=== PATIENT | male | born 1965 | race Caucasian/White ===

== ENCOUNTER → 2021-09-21 09:56 | Outpatient (CLI) | payer BC, SELFPAY ==
--- NOTE | 2021-09-21 10:07 | XR_ITS ---
FINAL REPORT CLINICAL HISTORY: LT SHOULDER PAIN FINDINGS: LEFT SHOULDER 3 views demonstrate no acute fracture or dislocation. There is mild AC joint degenerative change. The visualized bony structures are well aligned. No soft tissue abnormality is seen. IMPRESSION: No acute process. Reviewed, Interpreted and Dictated by Zach Ceja III, MD Transcribed by Rubin Sanchez Authenticated and [facility]
== END ==
PROVIDERS: PCP Family Medicine; Visit Provider Nurse Practitioner Family
DX: M25.512 Pain in left shoulder (principal)
CPT/HCPCS: 73030

== ENCOUNTER → 2021-10-08 14:12 | Outpatient (CLI) | payer BC, SELFPAY ==
--- NOTE | 2021-10-08 14:34 | MR_ITS ---
FINAL REPORT CLINICAL HISTORY: LEFT SHOULDER PAIN. LIMITED ROM. WEAKNESS IN ARM. FELT POP IN ARM 2 WEEKS AGO. BEEN TO PT. 19ML PROHANCE GIVEN. FINDINGS: Multiplanar MR imaging of the left shoulder was performed without and with contrast. There is a full-thickness tear of the anterior footprint of the supraspinatus tendon measuring 12 mm in AP dimension. There is a partial-thickness articular surface tear of the subscapularis tendon. There is moderate AC joint arthrosis. A moderate amount of fluid seen in subacromial/subdeltoid bursa. The glenoid labrum is intact. There is medial subluxation of the proximal long head of the biceps tendon with a partial tear. There is a subchondral cyst in the superior humeral head. There is contrast enhancement in the bursa and bicipital groove consistent with inflammation. Moderate glenohumeral joint effusion is seen. There is no evidence of fracture or dislocation. The musculature is intact. There is no evidence of soft tissue mass. IMPRESSION: This tear of the supraspinatus tendon. Partial-thickness articular surface tear of the subscapularis tendon. Partial tear of the long head of the biceps tendon. Reviewed, Interpreted and Dictated by Zach Ceja III, MD Transcribed by Terra Hawkins Authenticated and [facility]
== END ==
PROVIDERS: PCP Family Medicine; Visit Provider Nurse Practitioner Family
DX: M25.512 Pain in left shoulder (principal)
CPT/HCPCS: 73223; A9576

== ENCOUNTER 2021-10-21 10:00 | Outpatient (RCR) | payer BC, SELFPAY | END 2021-10-21 10:05 | disposition home or self-care (01) | LOC: PT 10:00 | PROVIDERS: PCP Family Medicine; Visit Provider Nurse Practitioner Family | DX: M25.512 Pain in left shoulder (principal) | CPT/HCPCS: 97110; 97163 ==

== ENCOUNTER → 2021-11-19 10:00 | Outpatient (CLI) | payer BC, SELFPAY ==
--- NOTE | 2021-11-19 10:22 | XR_ITS ---
FINAL REPORT CLINICAL HISTORY: pre op. pt has HTN FINDINGS: 2 views of the chest were obtained . The heart is normal in size. The mediastinum is within normal limits. The lungs are clear. There is no pneumothorax. Osseous structures demonstrate moderate degenerative changes of the thoracic spine. IMPRESSION: No acute cardiopulmonary process. Reviewed, Interpreted and Dictated by Zach Ceja III, MD Transcribed by Wendi Walker Authenticated and [facility]
--- NOTE | 2021-11-19 10:52 | ECG_ITS ---
APPROVED REPORT Exam: Resting ECG HR:66 bpm ECG Measurements Heart Rate 66 AXES MN 152 P 23 QRSd 146 QRS -76 QT 373 T 0 QTc 387 Conclusion SINUS RHYTHM RIGHT BUNDLE BRANCH BLOCK [120+ ms QRS DURATION, UPRIGHT V1, 40+ ms S IN I/aVL/V4/V5/V6] VOLTAGE CRITERIA FOR LVH [MEETS CRITERIA IN ONE OF: R(aVL), S(V1), R(V5), R(V5/V6)+S(V1)] INFERIOR MYOCARDIAL INFARCTION , OF INDETERMINATE AGE [40+ ms Q WAVE AND/OR ST/T ABNORMALITY IN II/aVF] ABNORMAL ECG UNCONFIRMED REPORT Electronically signed by : Last Carl MD 11/20/2021 21:41:37
[2021-11-19 11:50] LABS: Basophils # 0.1 K/mm3 (0-0.2); Basophils % 1.1 % (0.1-2.0); Eosinophils # 0.1 K/mm3 (0.0-0.4); Eosinophils % 1.8 % (0.1-12.0); Hematocrit 52.2 % (42.0-52.0); Hemoglobin 16.7 g/dL (14.1-18.0); Lymphocytes % 26.8 % (10-50); Mean Corpuscular Hemoglobin 29.8 pg (27.0-31.2); Mean Corpuscular Volume 93.1 fl (80-94); Monocytes # 0.5 K/mm3 (0.1-1.0); Monocytes % 6.2 % (1.7-9.3); Neutrophils # 4.8 K/mm3 (1.8-7.8); Platelet Count 176 K/mm3 (142-424); Red Cell Distribution Width 15.5 % (11.5-17.5); White Blood Count 7.6 K/mm3 (4.8-10.8)
[2021-11-19 12:38] LABS: Alanine Aminotransferase 15 U/L (12-78); Albumin Level 4.2 g/dl (3.5-5.0); Albumin/Globulin Ratio 1.8 (1.1-1.8); Alkaline Phosphatase 44 U/L (38-126); Anion Gap 11.8 mEq/L (5-15); Aspartate Amino Transferase 30 U/L (17-59); Bilirubin,Total 1.6 mg/dl (0.2-1.3); Blood Urea Nitrogen 13 mg/dl (9-20); Calcium 9.5 mg/dl (8.4-10.2); Carbon Dioxide 30 mmol/L (22.0-30.0); Chloride 100 mmol/L (98-107); Estimated Glomerular Filt Rate 63 ml/min (>60); GFR (African American) 77 ML/MIN (>60); Globulin 2.4 g/dL (1.3-3.2); Glucose 89 mg/dl (74-100); Potassium 4.8 mmoL/L (3.5-5.1); Sodium 137 mmol/L (136-145); Total Protein,Serum 6.6 g/dl (6.3-8.2)
== END ==
PROVIDERS: PCP Family Medicine; Visit Provider Orthopaedic Surgery
DX: Z01.818 Encounter for other preprocedural examination (principal); M25.512 Pain in left shoulder; G89.29 Other chronic pain
CPT/HCPCS: 36415; 71046; 80053; 85025; 93005

== ENCOUNTER → 2021-11-24 08:52 | Outpatient (CLI) | payer BC, SELFPAY | PROVIDERS: PCP Family Medicine; Visit Provider Orthopaedic Surgery | DX: M25.512 Pain in left shoulder (principal); G89.29 Other chronic pain; Z01.812 Encounter for preprocedural laboratory examination; Z20.822 Contact with and (suspected) exposure to COVID-19 | CPT/HCPCS: C9803; U0003; U0005 ==

== ENCOUNTER → 2021-11-25 14:31 | Outpatient (CLI) | payer BC, SELFPAY ==
--- NOTE | 2021-11-25 14:33 | CA_ITS ---
APPROVED REPORT EXAM: Comprehensive 2D, Doppler, and color-flow Echocardiogram Offset Press Operator Apprentice: Negrita Bliss, RT(R) Ht: 5 ft 7 in Wt: 214lbs BSA: 2.08 BP: 160/89 mmHg Indications: pre op for shoulder surgery tomorrow, HTN, abn EKG 2D Dimensions IVSd 1.52 cm M: 0.6-1.2 LVEF (Visual) 52.30 % PWd 1.07 cm M: 0.6 - 1.2 LA Volume 37.30 mL LVDd 3.21 cm M: 4.2 - 5.9 LA Volume Index 17.93 mL/m2 (M/F) 16-34 LVDs 2.38 cm M: 2.5 - 4.0 LVOT 2.07 cm (M/F) 1.5-2.5 M-Mode Dimensions LA Diam 4.00 cm (1.9-4.0) Ao Diam 3.11 cm (2.0-3.7) LV Diastology E Decel Time 190.00 (160-240 msec) E/A Ratio 0.7 MED E' 5.60 (< 7 cm/sec) E'/MED E' Ratio 11.71 (>14) LAT E' 9.60 (<10 cm/sec) E/LAT E' Ratio 6.83 (>14) Mitral Valve MV E Max Douglas. 66.00 (40-130 cm/s) MV A Velocity 101.00 (40-130 cm/s) E/A Ratio 0.65 MV Decel. Time 190.00 (160-240 ms) MV PHT 56.00 ms Left Ventricle Left atrium is mildly enlarged, left ventricle is normal size mild concentric left ventricular hypertrophy, estimated ejection fraction 55% with no regional wall motion abnormality, grade 1 diastolic dysfunction seen without tissue Doppler evidence of raise left atrial pressure. Right Ventricle Right atrium and right ventricle are normal size and contractility. Aortic Valve Aortic valve is minimally thickened and fibrosed there is no aortic stenosis or aortic insufficiency. Mitral Valve Mitral valve grossly normal, there is trace mitral regurgitation. Tricuspid Valve Tricuspid valve grossly normal, there is trace tricuspid regurgitation, tricuspid regurgitation jet velocity is inadequate for calculation of the right ventricular systolic pressure. Pulmonic Valve Pulmonic valve is poorly visualized. Great Vessels Aortic root is normal size. Inferior vena cava is poorly visualized. Pericardium No significant pericardial effusion noted. Conclusion 1. Mildly enlarged left atrium, normal left ventricular size, mild concentric left ventricular hypertrophy, estimated ejection fraction 55% with no regional wall motion abnormality, grade 1 diastolic dysfunction seen without tissue Doppler evidence of raise left atrial pressure. 2. Trace mitral and tricuspid regurgitation. 3. No significant pericardial effusion noted. 4. Inferior vena cava is poorly visualized. Electronically signed by : Porfirio Bautista MD 11/26/2021 06:13:55
== END ==
LOC: RT 14:33
PROVIDERS: PCP Family Medicine; Visit Provider Physician Assistant
DX: Z01.810 Encounter for preprocedural cardiovascular examination (principal); I10 Essential (primary) hypertension; R94.31 Abnormal electrocardiogram [ECG] [EKG]
CPT/HCPCS: 93306

== ENCOUNTER 2021-11-26 06:00 | Day surgery (SDC) | payer BC, SELFPAY ==
[2021-11-23 14:26] VITALS: BMI 33.5
[2021-11-26] VITALS (13 sets, daily range): BP systolic 145–171; BP diastolic 72–84; PULSE 66–84; RESP 12–18; TEMP 36.3–43; O2SAT 92–97
--- NOTE | 2021-11-26 10:28 | P.PN_ITS ---
[facility] Anesthesia Checklist - Structural Data Admitted From: Home Planned Operative Procedure/s: l shoulder arthroscopy Consent for Planned Operative Procedure(s) Verified: Yes - Additional verifications Anesthesia Reactions: No Hx Blood Transfusions: No Blood Transfusion Reaction: No - Airway Assessment C-Spine Mobility Assessed: Yes TMJ Mobility Assessed: Yes Dentition: Good Dentition - Neurological Assessment Level of Consciousness: Awake, Alert, Appropriate - Anesthesia Plan Anesthesia Risk discussed: Yes Anesthesia Plan: Verified ASA Class: II Anesthesia Type: General w/block - Preoperative Comments Pre-Operative Comments: BP block exp to pt, pt agrees to proceed [facility] History I have reviewed the patient's past medical history: Yes Medical History: Reports:: Hypertension Denies:: Cancer, Diabetes Mellitus Type 1, Diabetes Mellitus Type 2, Internal Pacemaker, MRSA, Seizures *Have you ever received a pneumonia vaccine?: No *Have you received a flu vaccine this season?: No Other Medical History: Denies: Blood Transfusion Reaction Anesthesia experience/problems:: none Other Surgeries: Yes: Colonoscopy. No: Pacemaker Amputation: No - *Social History Last grade of school completed: Advanced degree Smoking Status: Never smoker Alcohol Intake: never Substance Use Type: denies use *Occupational Status:: employed *Travel in the last 8 weeks: None Family Hx:: No significant family history
--- NOTE | 2021-11-26 11:20 | SUR.OPER ---
1120 family given an update via Blaine Infante RN
--- NOTE | 2021-11-26 12:31 | SUR.OPER ---
1230 family given an update via Arthur Aguilar RN
--- NOTE | 2021-11-26 13:43 | SUR.OPER ---
1330 family given an update via Arthur Aguilar RN
--- NOTE | 2021-11-26 14:31 | P.PN_ITS ---
[facility] Anesthesia Record Part I Intake, IV Amount: 3,200 Estimated blood loss (mL): 0 Urine output (mL): 2,000 Blood Pressure: 145/76 SaO2: 94 Pulse Rate: 79 Respiratory Rate: 12 Temperature: 97.6 F Patient is:: Awake, Stable Stable to PACU at:: 14:25
[2021-11-26 14:57] LABS: Microscopic,Cath URINE MICROSCOPIC (MICROSCOPIC)
--- NOTE | 2021-11-26 15:01 | SUR.PHASEI ---
1454 called and gave detailed report to Romeo Berry RN 1455 transported via stretcher to post op. vital signs stable. denies pain. left in stable condition with Romeo Berry RN at bedside.
[2021-11-26 15:24] LABS: Appearance,Urine/Cath CLEAR (Clear); Bilirubin,Cath Negative (Negative); Blood, Urine/Cath TRACE-I (Negative); Color,Urine/Cath YELLOW (Yellow); Glucose,Urine/Cath (UA) Negative (Negative); Ketones,Urine/Cath Negative (Negative); Leukocyte Esterase,Cath Negative (Negative); Nitrate,Cath Negative (Negative); Protein,Urine/Cath Negative (Negative); Specific Gravity, Urine/Cath 1.025 (1.005-1.030); Urobilinogen,Cath 0.2 EU/dl (0.2)
[2021-11-26 16:06] LABS: RBC,Urine/Cath Occasional # /hpf (0-3)
--- NOTE | 2021-11-26 16:37 | P.PN_ITS ---
[facility] Anesthesia Record Part II Discharge Time: 14:55 Destination: Surgical Day Care (OP Surgery) PACU nurse assessment reviewed?: Yes Patient Condition:: Good Anesthesia Complications:: None Swallowing reflex intact?: Yes Cyanosis?: No Blood Pressure: 155/80 Pulse Rate: 79 Temperature: 97.4 F Mental Status: Alert & Oriented Pain level:: 0 Nausea and/or vomitting:: None Intake, IV Amount: 0
--- NOTE | 2021-11-26 16:50 | P.OP_ITS ---
Date of procedure: 11/26/21 Pre-op Diagnosis:: 1. Complete full-thickness Rotator cuff tear, LEFT shoulder 2. Biceps tendinopathy, LEFT shoulder 3. Subacromial bursitis, LEFT shoulder 4. Subacromial impingement, LEFT shoulder Post-op Diagnosis:: 1. Rotator cuff tear, LEFT shoulder- Full thickness complete tear of the supraspinatus tendon tear and upper border subscapularis tendon tear. 2. Biceps tendinopathy, LEFT shoulder 3. Subacromial bursitis, LEFT shoulder 4. Subacromial impingement, LEFT shoulder 5. Degenerative labrum and synovitis, LEFT glenohumeral joint Procedure performed:: 1. LEFT shoulder arthroscopic rotator cuff repair of a large rotator cuff tear. 2. LEFT shoulder arthroscopic subacromial decompression with subacromial and subdeltoid bursectomy and a bony acromioplasty. 3. LEFT shoulder arthroscopic glenohumeral joint debridement, extensive. 4. LEFT shoulder arthroscopic biceps tenodesis Surgeon:: Allan Simon MD Marketing Research Coordinator(s):: Martha Taylor PA-C [employer]ODUCTS GATHERER:: Will Thomas Anesthesia: GETA, regional (Interscalene nerve block) Estimated blood loss (mL): 5 Clinical Note:: Mr. Flores is a pleasant 56-year-old [id number] gentleman with history of pain and disability in his LEFT shoulder after an injury. He had weakness and difficulty with the use of the arm. Preoperative evaluation was consistent with the above mentioned diagnosis. After discussion of the risks and benefits of the surgical versus nonsurgical management, he elected to proceed with surgical remediation. Please refer to my office note for full details. Operative findings:: There was a full-thickness crescent-shaped complete tear of the supraspinatus tendon and a partial-thickness upper border tear of the subscapularis tendon. The biceps tendon showed synovitis and partial tearing in the biceps groove. At the time of arthroscopic tenodesis marked synovitis and partial thickness tear was noted in the extra-articular part of the biceps tendon. The labrum was frayed all around but not detached. The rotator interval was synovitic. The articular surface of the humerus and the glenoid had some softening, but no evidence of any full-thickness cartilage loss. There was extensive subacromial and subdeltoid bursitis and the acromion had undersurface spurring over the anterolateral margin. Operative note:: Implants: 1. Arthrex SpeedBridge implant system with BioComposite SwiveLock SP anchors ?4 (for SpeedBridge repair of the supraspinatus tendon). 2. Arthrex BioComposite SwiveLock suture anchor (8?19.5 mm) x 1 (for biceps tenodesis). 3. Arthrex BioComposite SwiveLock suture anchor (4.75 x 19.1 mm) x1 (for SpeedFix repair of the subscapularis tendon). Condition: stable Disposition: PACU Specimens:: None Complications:: None
== END 2021-11-26 15:48 | disposition home or self-care (01) ==
LOC: OR 06:02
PROVIDERS: PCP Family Medicine; Visit Provider Orthopaedic Surgery
PROC: (CPT 29827; principal; 2021-11-26 09:00)
DX: M75.122 Complete rotator cuff tear or rupture of left shoulder, not specified as traumatic (principal); M25.512 Pain in left shoulder; M75.52 Bursitis of left shoulder; M75.42 Impingement syndrome of left shoulder; M67.912 Unspecified disorder of synovium and tendon, left shoulder; M75.22 Bicipital tendinitis, left shoulder
CPT/HCPCS: 29827; 29828; 29826; 81001; 96374; C1713; J2405

== ENCOUNTER → 2022-02-17 09:39 | Outpatient (CLI) | payer BC, SELFPAY ==
--- NOTE | 2022-02-17 09:47 | XR_ITS ---
FINAL REPORT CLINICAL HISTORY: shoulder pain COMPARISON: 09/21/2021 FINDINGS: LEFT SHOULDER 3 views of the left shoulder were obtained. Tendon anchors are present in the humeral head. There is no acute fracture or dislocation. There is mild degenerative change of the acromioclavicular joint.. There is no soft tissue abnormality. IMPRESSION: Mild degenerative change of the acromioclavicular joint. Reviewed, Interpreted and Dictated by Chandrakant Beckham MD Transcribed by Danita Bourgeois Authenticated and [facility]
== END ==
PROVIDERS: PCP Family Medicine; Visit Provider Physician Assistant Surgical
DX: M25.512 Pain in left shoulder (principal); Z09 Encounter for follow-up examination after completed treatment for conditions other than malignant neoplasm
CPT/HCPCS: 73030

== ENCOUNTER → 2022-03-15 09:57 | Outpatient (CLI) | payer BC, SELFPAY ==
--- NOTE | 2022-03-15 09:58 | IR_ITS ---
FINAL REPORT CLINICAL HISTORY: lt shoulder pain, previous rotator cuff repair october 2021 31 second fluoro time FINDINGS: LEFT SHOULDER ARTHROGRAM. HISTORY: Acute left shoulder pain, prior rotator cuff injury and repair. ATTENDING PHYSICIAN: Dr. Ceja. PHYSICIAN HEATING UNIT INSTALLER: Danielle Garcia PA-C PROCEDURE: Informed consent was obtained from the patient. Timeout procedure was performed prior to beginning. Patient was placed supine on the fluoroscopy table. The left shoulder joint space was localized using fluoroscopy. Skin was marked appropriately. The patient was prepped and draped in the usual sterile fashion over the left shoulder. Skin was anesthetized with 1% Lidocaine. Access to the joint space was obtained using a 3-1/2 spinal needle. A small amount of Isovue contrast was injected to confirm needle placement. This was confirmed. Subsequently, approximately 18 mL of dilute gadolinium were injected into the joint space. The patient tolerated the procedure well and left the department in good condition. 17 images were saved. FLUOROSCOPY TIME: 31 seconds IMPRESSION: Technically successful injection of contrast for left shoulder arthrogram. Please see MR report. Reviewed, Interpreted and Dictated by Zach Ceja III, MD Transcribed by Danielle Garcia PA-C Authenticated and [facility]
--- NOTE | 2022-03-15 10:46 | MR_ITS ---
FINAL REPORT CLINICAL HISTORY: lt shoulder pain. HISTORY SHOULDER SURGERY 6MONTHS AGO. LIMITED ROM. FINDINGS: Multiplanar MR imaging of the left shoulder was performed after the intra-articular injection of dilute gadolinium solution. Motion on many of the images decreases exam sensitivity. There is postoperative change from rotator cuff tendon repair. No full-thickness rotator cuff tendon tear is seen. There is no evidence of contrast leakage from the glenohumeral joint to the subacromial/subdeltoid bursa. The a.c. joint is intact. The glenoid labrum is intact. There has been presumed biceps tenodesis. There is no evidence of fracture. The musculature is intact. No soft tissue mass or cyst is identified. IMPRESSION: Postoperative change from rotator cuff repair and presumed biceps tenodesis. No full-thickness rotator cuff tendon tear. Reviewed, Interpreted and Dictated by Zach Ceja III, MD Transcribed by Rubin Sanchez Authenticated and [facility]
== END ==
PROVIDERS: PCP Family Medicine; Visit Provider Physician Assistant Surgical
DX: Z98.890 Other specified postprocedural states; S46.012D Strain of muscle(s) and tendon(s) of the rotator cuff of left shoulder, subsequent encounter
CPT/HCPCS: 73040; 73222; Q9967

== ENCOUNTER → 2022-06-23 13:58 | Outpatient (CLI) | payer BC, SELFPAY ==
[2022-06-23 15:20] LABS: Alanine Aminotransferase 18 U/L (12-78); Albumin Level 4.8 g/dl (3.5-5.0); Alkaline Phosphatase 45 U/L (38-126); Anion Gap 14.6 mEq/L (5-15); Aspartate Amino Transferase 33 U/L (17-59); Bilirubin,Direct 0.1 mg/dl (0.0-0.4); Bilirubin,Indirect 1.2 mg/dL (0.0-0.9); Bilirubin,Total 1.3 mg/dl (0.2-1.3); Bilirubin,Unconjugated 1.2 mg/dL (0.0-1.1); Blood Urea Nitrogen 23 mg/dl (9-20); Calcium 9.4 mg/dl (8.4-10.2); Carbon Dioxide 28 mmol/L (22.0-30.0); Chloride 95 mmol/L (98-107); Chol/HDL Ratio 4.9 (1-3.5); Cholesterol 219 mg/dl (140-200); Estimated Glomerular Filt Rate 70 ml/min (>60); GFR (African American) 84 ML/MIN (>60); Glucose 81 mg/dl (74-100); HDL Cholesterol 45 mg/dl (40-60); Potassium 4.6 mmoL/L (3.5-5.1); Sodium 133 mmol/L (136-145); Total Protein,Serum 7.4 g/dl (6.3-8.2); Triglycerides 308 mg/dl (30-150); VLDL Cholesterol 62 mg/dL (0-40)
[2022-06-23 15:30] LABS: Direct LDL Cholesterol 130.53 mg/dL (100-129)
[2022-06-23 15:36] LABS: Free T4 (Free Thyroxine) 1.11 ng/dl (0.78-2.19)
[2022-06-23 15:50] LABS: Thyroid Stimulating Hormone 1.96 uIU/mL (0.465-4.68)
[2022-06-23 17:02] LABS: Basophils # 0.1 K/mm3 (0-0.2); Eosinophils # 0.1 K/mm3 (0.0-0.4); Hematocrit 48.2 % (42.0-52.0); Hemoglobin 16.2 g/dL (14.1-18.0); Lymphocytes # 2.4 K/mm3 (0.7-4.5); Mean Corpuscular HGB Conc 33.5 g/dL (31.8-35.4); Mean Corpuscular Hemoglobin 30.1 pg (27.0-31.2); Mean Corpuscular Volume 89.8 fl (80-94); Mean Platelet Volume 9.4 fl (7.4-10.4); Monocytes # 0.6 K/mm3 (0.1-1.0); Monocytes % 6.9 % (1.7-9.3); Neutrophils # 6.1 K/mm3 (1.8-7.8); Platelet Count 199 K/mm3 (142-424); Red Blood Count 5.37 M/mm3 (4.60-6.20); Red Cell Distribution Width 15.5 % (11.5-17.5); White Blood Count 9.4 K/mm3 (4.8-10.8)
== END ==
PROVIDERS: PCP Family Medicine; Visit Provider Nurse Practitioner
DX: I10 Essential (primary) hypertension (principal); R94.31 Abnormal electrocardiogram [ECG] [EKG]; Z79.899 Other long term (current) drug therapy
CPT/HCPCS: 36415; 80048; 80061; 80076; 83735; 84439; 84443; 85025

== ENCOUNTER 2022-09-28 08:00 | Outpatient (RCR) | payer BC, SELFPAY ==
--- NOTE | 2022-01-06 12:15 | HMH.PTOPEV ---
PT Outpatient Evaluation Rehab PT Outpatient Evaluation Start: 01/06/22 09:09 Freq: Status: Active Protocol: Document 01/06/22 09:38 RODOLFO (Rec: 01/06/22 12:15 RODOLFO [id number]) E-signed By Danial Duffy, PT Outpatient Therapy Subjective History Subjective History This is the initial outpatient PT evaluation for Luis Austin , a 56 y/o 6 weeks s/pL rotator cuff repair. Pt initially injured his shoulder when changing a spare tire. Pt underwent sx on 11/26/21 consisting of L shoulder arthroscopic rotator cuff repair, subacromial decompression, glenohumeral jt debridement, and biceps tenodesis. Pt describes a pulling sensation on the shoulder that contributes to his current pain rated as 5/10 in recent weeks. Pt reports he has been taking ibuprofen and icing the area for pain relief. Pt notes that he has been sleeping in a recliner and a couch with pillows propping his arm up, and has only been averaging ~4 hours a sleep at night. Pt has returned to driving and states his difficulty with dressing has improved gradually within the past couple weeks. Pt is a [employer] employee and currently off of work. Written by Sabrina Hilliard, [employer] Chief Complaint Pain,Spasms,Stiff,Weakness Symptom Type Throb,Dull,Other Symptoms Relieved By Rest/Positioning,Ice,Brace/ Support,OTC Meds Symptoms Aggravated By Prone,Standing,Physical Activity Prior Functional Limitations None Current Functional Limitations Reaching,Lifting,Dressing, Sleeping,Standing,Recreation Activity Symptom Description Constant but Variable,Pain at Rest,Activity Dependent Level of pain today (0-10) 5 Pain scale - at its best (0-10) 5 Pain scale - at its worst (0-10) 5 Shoulder/Elbow Eval Shoulder Objective Measurements
--- NOTE | 2022-04-09 09:10 | HMH.RHREAS ---
Rehab Reassessment Rehab OP Re-assessment Start: 02/09/22 08:59 Freq: Status: Active Protocol: Document 04/09/22 08:51 MIKE (Rec: 04/09/22 09:09 MIKE [id number]) E-signed By Bryan Gomez PT Rehab Re-assessment Subjective Subjective Patient reports 70% improvement since start of care. Objective Objective Notes AROM: flx 74; abd 72; ER 28; IR WFL MMT: 4-/5 grossly flx/abd/ scapt; 4/5 ER/IR Pain: today 09/18; At worst over past week 10/18 Neuro: WNL Special tests: drop arm + Assessment Progress Assessment Slower Than Expected Assessment Notes Patient continues to presenting with significant AROM deficits. PROM presenting WNL except for ER. Most recent MRI negative for any further rotator cuff damage. Patient would benefit from continuing with skilled PT services in order to address functional limitations with all shoulder height/ overhead lifting activities. Patient goals met STG 1-3, STG 5 Goals Not Met STG 4; LTG's Revised Goals NA Plan Plan Continue with current POC. Frequency of Therapy 2x/week Duration of therapy 4 weeks Time and Billing Re-Eval Time 16 Re-Eval Billing Units 1 PHYSICIAN CERTIFICATION: I certify the specified therapy services for Luis Austin are required, authorized, and reviewed every 30 days.
--- NOTE | 2022-04-09 09:26 | HMH.RHREAS ---
Rehab Reassessment Rehab OP Re-assessment Start: 02/09/22 08:59 Freq: Status: Active Protocol: Document 04/09/22 08:51 MIKE (Rec: 04/09/22 09:09 MIKE [id number]) E-signed By Bryan Gomez PT Rehab Re-assessment Subjective Subjective Patient reports 70% improvement since start of care. Objective Objective Notes AROM: flx 74; abd 72; ER 28; IR WFL MMT: 4-/5 grossly flx/abd/ scapt; 4/5 ER/IR Pain: today 09/18; At worst over past week 10/18 Neuro: WNL Special tests: drop arm + Assessment Progress Assessment Slower Than Expected Assessment Notes Patient continues to presenting with significant AROM deficits. PROM presenting WNL except for ER. Most recent MRI negative for any further rotator cuff damage. Patient would benefit from continuing with skilled PT services in order to address functional limitations with all shoulder height/ overhead lifting activities. Patient goals met STG 1-3, STG 5 Goals Not Met STG 4; LTG's Revised Goals NA Plan Plan Continue with current POC. Frequency of Therapy 2x/week Duration of therapy 4 weeks Time and Billing Re-Eval Time 16 Re-Eval Billing Units 1 PHYSICIAN CERTIFICATION: I certify the specified therapy services for Luis Austin are required, authorized, and reviewed every 30 days.
--- NOTE | 2022-05-04 09:06 | HMH.RHREAS ---
Rehab Reassessment Rehab OP Re-assessment Start: 02/09/22 08:59 Freq: Status: Active Protocol: Document 05/04/22 08:58 MIKE (Rec: 05/04/22 09:06 MIKE [id number]) E-signed By Bryan Gomez, PT Rehab Re-assessment Subjective Subjective Patient reports 70% improvement since start of care. [ End ] Objective Objective Notes AROM: flx 94; abd 82; ER 38; IR WFL MMT: 4/5 grossly flx/abd/scapt ; 4/5 ER/IR Pain: today 09/18; At worst over past week 10/18 Neuro: WNL Special tests: drop arm + Assessment Progress Assessment Slower Than Expected Assessment Notes Patient continues to presenting with significant AROM deficits. PROM presenting WNL except for ER. Most recent MRI negative for any further rotator cuff damage. Patient would benefit from continuing with skilled PT services in order to address functional limitations with all shoulder height/ overhead lifting activities. Patient goals met STG 1-3, STG 5 Goals Not Met STG 4; LTG's Revised Goals NA Plan Plan Continue with current POC. Frequency of Therapy 2x/week Duration of therapy 4 weeks Time and Billing Re-Eval Time 16 Re-Eval Billing Units 1 PHYSICIAN CERTIFICATION: I certify the specified therapy services for Luis Austin are required, authorized, and reviewed every 30 days.
--- NOTE | 2022-06-03 09:05 | HMH.RHREAS ---
Rehab Reassessment Rehab OP Re-assessment Start: 02/09/22 08:59 Freq: Status: Active Protocol: Document 06/03/22 08:57 SEAN (Rec: 06/03/22 09:05 PHOSHERON [id number]) E-signed By Magan Sanchez, PT Rehab Re-assessment Subjective Subjective Pt reports he has less pain overall, 5/10 today in L SHLD, but remains weak. Continues to have difficulty with L SHLD FLEX/EXT/ER actively. He does reports some improvements in ADL's, I can reach my head to wash my hair now. Objective Objective Notes AROM L SHLD (IN DEG): FLEX= 0- 92, ABD= 0-90, ER= 0-48. MMT L SHLD: FLEX/ABD/ER= 4/5 THROUGHOUT IN AVAILABLE AROM. PROM L SHLD REMAINS WFL THROUGHOUT. Assessment Progress Assessment Slower Than Expected Assessment Notes Pt has shown improvements in ADL's as noted above and he continues to follow HEP VERY well independently. He continues to have significantly decreased strength in L SHLD above 90 deg of FLEX or ABD. Upper trap continues to be required as assistance for SHLD mobility on L side. Strength steadily improving, but needs to increase further to reach full use of L UE functionally. Patient goals met STG 1-3, STG 5 Goals Not Met STG 4; LTG's Revised Goals NA Plan Plan Continue with current POC. Frequency of Therapy 2x/week Duration of therapy 4 weeks Time and Billing Re-Eval Time 14 Re-Eval Billing Units 1 PHYSICIAN CERTIFICATION: I certify the specified therapy services for Luis Austin are required, authorized, and reviewed every 30 days.
--- NOTE | 2022-06-30 09:51 | HMH.RHREAS ---
Rehab Reassessment Rehab OP Re-assessment Start: 02/09/22 08:59 Freq: Status: Active Protocol: Document 06/30/22 08:11 MIKE (Rec: 06/30/22 09:48 MIKE [id number]) E-signed By Bryan Gomez, PT Rehab Re-assessment Subjective Subjective Patient reports 80% improvements since start of care. Objective Objective Notes AROM L SHLD (IN DEG): FLEX= 0- 122, ABD= 0-96, ER= 0-68. MMT L SHLD: FLEX/ABD/ER= 4/5 THROUGHOUT IN AVAILABLE AROM. PROM L SHLD REMAINS WFL THROUGHOUT. [ End ] Assessment Progress Assessment Slower Than Expected Assessment Notes Pt has shown improvements in ADL's as noted above and he continues to follow HEP VERY well independently. He continues to have significantly decreased strength in L SHLD above 90 deg of FLEX or ABD. Upper trap continues to be required as assistance for SHLD mobility on L side. Strength steadily improving, but needs to increase further to reach full use of L UE functionally. AROM/MMT deficits continue to contribute to functional limitations with all reaching/ overhead lifting activities indicating that this patient would benefit from continuing with skilled PT services. [ End ] Patient goals met STG 1-3, STG 5 Goals Not Met STG 4; LTG's Revised Goals NA Plan Plan Continue with current POC. Frequency of Therapy 2x/week Duration of therapy 4 weeks Time and Billing Re-Eval Time 14 Re-Eval Billing Units 1 PHYSICIAN CERTIFICATION: I certify the specified therapy services for Luis Austin are required, authorized, and reviewed every 30 days.
--- NOTE | 2022-07-29 09:11 | HMH.RHREAS ---
Rehab Reassessment Rehab OP Re-assessment Start: 02/09/22 08:59 Freq: Status: Active Protocol: Document 07/29/22 08:51 MIKE (Rec: 07/29/22 09:03 MIKE [id number]) E-signed By Bryan Gomez, PT Rehab Re-assessment Subjective Subjective Patient reports 80% improvement since start of care. It's moving better, but I still can't do any kind of lifting above my shoulder. Objective Objective Notes AROM L SHLD (IN DEG): FLEX= 0- 138, ABD= 0-98, ER= 0-68. IR= 46 MMT L SHLD: FLEX/ABD/ER= 4/5 THROUGHOUT IN AVAILABLE AROM. PROM L SHLD REMAINS WFL THROUGHOUT. Special tests: + full can/ empty can Pain: currently 5/10; 7/10 at worst over past week [ End ] [ End ] Assessment Progress Assessment Slower Than Expected Assessment Notes No increase in pain with exercise. Pt declined manual and modalities today. Patient continues to demonstrate AROM deficits, though improved. Patient would benefit from continuing with skilled PT services to address functional limitations with all shoulder height/overhead lifting, as well as work related activities. Patient goals met STG 1-3, STG 5 Goals Not Met STG 4; LTG's Revised Goals NA Plan Plan Continue with current POC. Patient to follow-up with MD for second opinion to address further treatment options. Frequency of Therapy 2x/week Duration of therapy 4 weeks Time and Billing Re-Eval Time 14 Re-Eval Billing Units 1 PHYSICIAN CERTIFICATION: I certify the specified therapy services for Luis Austin are required, authorized, and reviewed every 30 days.
== END 2022-09-28 08:05 | disposition home or self-care (01) ==
LOC: PT 08:00
PROVIDERS: PCP Family Medicine; Visit Provider Orthopaedic Surgery
DX: S46.011D Strain of muscle(s) and tendon(s) of the rotator cuff of right shoulder, subsequent encounter (principal); Z09 Encounter for follow-up examination after completed treatment for conditions other than malignant neoplasm
CPT/HCPCS: 97014; 97110; 97112; 97140; 97163; 97164; 97530; G0283

== ENCOUNTER → 2023-02-07 11:33 | Outpatient (CLI) | payer BC, SELFPAY ==
[2023-02-07 13:07] LABS: Alanine Aminotransferase 24 U/L (12-78); Albumin Level 4.6 g/dl (3.5-5.0); Alkaline Phosphatase 37 U/L (38-126); Aspartate Amino Transferase 38 U/L (17-59); Bilirubin,Direct 0.2 mg/dl (0.0-0.4); Bilirubin,Indirect 1.4 mg/dL (0.0-0.9); Bilirubin,Total 1.6 mg/dl (0.2-1.3); Bilirubin,Unconjugated 1.4 mg/dL (0.0-1.1); Total Protein,Serum 7.2 g/dl (6.3-8.2)
== END ==
PROVIDERS: PCP Nurse Practitioner Family; Visit Provider Nurse Practitioner Family
DX: I10 Essential (primary) hypertension (principal); R94.31 Abnormal electrocardiogram [ECG] [EKG]
CPT/HCPCS: 36415; 80076